=== PATIENT | female | born 1955 | race Caucasian/White ===

== ENCOUNTER 2020-04-30 08:07 | Day surgery (SDC) | payer BC ==
[2020-04-25 11:13] VITALS: BMI 26.1
[~2020-04-30 08:07] MED LIST: LACTATED RINGERS 1,000 ML IV SCH; LIDOCAINE 1% (10MG/ML) FOR IV START INTRADERMA PRN
[2020-04-30 08:22] VITALS: TEMP 97.6
[2020-04-30] MEDS ORDERED: MIDAZOLAM 2 MG/2 ML VIAL ONE (08:55)
[2020-04-30] MEDS ORDERED: fentaNYL (PF) 50 MCG/ML 2 ML AMP ONE (08:55)
[2020-04-30] MEDS ORDERED: PROPOFOL 10 MG/ML 20 ML VIAL IV ONE (08:55)
--- NOTE | 2020-04-30 08:59 | P.GSHP ---
History of Present Illness H&P Date: 04/30/20 Chief Complaint: Colon cancer screening 64-year-old female here today for colonoscopy. Last colonoscopy 20 years ago. No bowel changes. No rectal bleeding or melena. No family history of colon cancer. Past Medical History Past Medical History: Asthma, Thyroid Disorder Additional Past Medical History / Comment(s): environmental History of Any Multi-Drug Resistant Organisms: None Reported Past Surgical History: Appendectomy, Section, Tonsillectomy Additional Past Surgical History / Comment(s): C/S-x2 Past Anesthesia/Blood Transfusion Reactions: No Reported Reaction Smoking Status: Never smoker Medications and Allergies Home Medications Medication Instructions Recorded Confirmed Type Atorvastatin [Lipitor] 10 mg PO DAILY 04/25/20 04/25/20 History Cetirizine HCl [Zyrtec] 10 mg PO DAILY 04/25/20 04/25/20 History Cholecalciferol [Vitamin D3 (25 1,000 unit PO DAILY 04/25/20 04/25/20 History Mcg = 1000 Iu)] Levothyroxine Sodium [Synthroid] 25 mcg PO DAILY 04/25/20 04/25/20 History Mometasone/Formoterol [Dulera 100 1 puff PO DAILY 04/25/20 04/30/20 History Mcg-5 Mcg Inhaler] Montelukast [Singulair] 10 mg PO HS 04/25/20 04/30/20 History Allergies Allergy/AdvReac Type Severity Reaction Status Date / Time No Known Allergies Allergy Verified 04/30/20 08:21 Surgical - Exam Vital Signs Temp Pulse Resp BP Pulse Ox 97.6 F 70 17 185/77 99 04/30/20 08:22 04/30/20 08:22 04/30/20 08:22 04/30/20 08:22 04/30/20 08:22 Physical exam: General: Well-developed, well-nourished HEENT: Normocephalic, sclerae nonicteric Abdomen: Nontender, nondistended Extremities: No edema Neuro: Alert and oriented Assessment and Plan (1) Colon cancer screening Narrative/Plan: Will proceed with colonoscopy at this time Current Visit: Yes Status: Acute Code(s): Z12.11 - ENCOUNTER FOR SCREENING FOR MALIGNANT NEOPLASM OF COLON SNOMED Code(s): 768760425
--- NOTE | 2020-04-30 09:14 | P.PCN ---
Date of Procedure: 04/30/20 Procedure(s) Performed: PREOPERATIVE DIAGNOSIS: Colon cancer screening POSTOPERATIVE DIAGNOSIS: Diverticulosis PROCEDURE: Colonoscopy ANESTHESIA: MAC SURGEON: Omid Babb M.D. SPECIMENS: None ENDOSCOPIC PROCEDURE: The patient was placed on the endoscopy table in the left decubitus position. The Olympus colonoscope was inserted into the anus and passed under direct visualization to the base of the cecum. The appendiceal orifice was visualized. From that point the scope was slowly withdrawn inspe cting all surfaces carefully. There were no neoplastic inflammatory or polypoid lesions throughout the cecum, ascending, transverse, descending, sigmoid and rectum. There was mild left-sided diverticulosis noted. Digital rectal examination was normal. The patient was taken to the recovery room in stable condition per anesthesia guidelines. RECOMMENDATIONS: Increase fiber. Follow colonoscopy 10 years.
[2020-04-30 09:18] VITALS: RESP 16
[2020-04-30 09:41] VITALS: BP 136/73; PULSE 61
== END 2020-04-30 10:03 | disposition home or self-care (01) ==
LOC: ORWHC2ENDO 08:07
PROVIDERS: ATTEND Surgery
DX: Z12.11 Encounter for screening for malignant neoplasm of colon (principal); K57.30 Diverticulosis of large intestine without perforation or abscess without bleeding; J45.909 Unspecified asthma, uncomplicated; E07.9 Disorder of thyroid, unspecified; Z79.51 Long term (current) use of inhaled steroids; Z79.890 Hormone replacement therapy; Z79.899 Other long term (current) drug therapy; Z90.49 Acquired absence of other specified parts of digestive tract; Z98.891 History of uterine scar from previous surgery; Z90.89 Acquired absence of other organs
CPT/HCPCS: J2250; J3010; J2704; G0121

== ENCOUNTER → 2022-03-10 | Outpatient (CLI) | payer BC ==
--- NOTE | 2022-03-10 15:51 | US ---
EXAMINATION TYPE: US extremity nonvasculr ltd RT DATE OF EXAM: 03/10/2022 COMPARISON: NONE CLINICAL HISTORY: M79.669 PAIN IN RIGHT LOWER LEG. Patient states right leg while playing with kids o n 02 of February. No redness or swelling. patient states its starts to feel better after walking. Area of concern scanned. No prominent masses, lesions or fluid collection identified in right busboy ior knee. IMPRESSION: No discrete abnormality appreciated at this time.
== END | disposition home or self-care (01) ==
LOC: RADUSWWP 14:56
PROVIDERS: ATTEND Family Medicine
DX: M79.669 Pain in unspecified lower leg (principal)